=== PATIENT | female | born 1960 | race Two or more races ===

== ENCOUNTER 2020-08-29 16:21 | Emergency (ER) | payer OTHER ==
[~2020-08-29] VITALS: Ht 167.6 cm; Wt 67.6 kg
[2020-08-29] MEDS ORDERED: LORAZEPAM 1 MG TABLET PO ONE (16:30)
--- NOTE | 2020-08-29 16:33 | NUR ---
MARBIN FROM [facility] FOR GENERALIZED WEAKNESS, TO ER BED 9, HOOKED TO MONITOR, CHANGED TO HOSP GOWN, WARM BLANKET PROVIDED, PATIENT AAO x 4. DR HENDERSON AT BEDSIDE FOR EVAL.
--- NOTE | 2020-08-29 16:34 | NUR ---
NOTED W LAC 20G, PATENT AND FLUSHING.
[2020-08-29] MEDS ORDERED: LORAZEPAM 1 MG TABLET ONE (16:37)
--- NOTE | 2020-08-29 16:49 | NUR ---
PROVIDED W FOOD TRAY. TOLERATING PO WELL.
[2020-08-29 16:57] LABS: BASOPHILS # (AUTO) 0.1 /CMM (0.0-0.2); BASOPHILS % (AUTO) 0.8 % (0.0-2.0); EOSINOPHILS % (AUTO) 1.6 % (0.0-6.0); HEMATOCRIT 39 % (33-45); HEMOGLOBIN 13.3 g/dL (11.5-14.8); LYMPHOCYTES # (AUTO) 2.4 /CMM (0.8-4.8); LYMPHOCYTES % (AUTO) 32.1 % (20.0-44.0); MEAN CORPUSCULAR HGB CONC 34 g/dl (31.0-36.0); MEAN CORPUSCULAR VOLUME 88 fL (82-100); MONOCYTES # (AUTO) 0.5 /CMM (0.1-1.30); MONOCYTES % (AUTO) 6.3 % (2.0-12.0); NEUTROPHILS # (AUTO) 4.5 /CMM (1.8-8.9); NEUTROPHILS % (AUTO) 59.2 % (43.0-81.0); PLATELET COUNT (AUTO) 277 /CMM (150-450); RED BLOOD CELL COUNT(AUTO) 4.47 MIL/uL (4.0-5.2); WHITE BLOOD COUNT (AUTO) 7.5 K/uL (4.3-11.0)
[2020-08-29 17:07] LABS: CALCIUM, SERUM 8.7 mg/dL (8.5-10.1); CARBON DIOXIDE 26 mmol/L (21-32); CHLORIDE 104 mmol/L (98-107); CREATININE 0.6 mg/dL (0.6-1.3); GLUCOSE 85 mg/dL (74-106); POTASSIUM 3.5 mmol/L (3.5-5.1); SODIUM SERUM 142 mmol/L (136-145); UREA NITROGEN, BLOOD 6 mg/dL (7-18)
--- NOTE | 2020-08-29 17:10 | NUR ---
URINE SAMPLE COLLECTED AND SENT TO LAB
[2020-08-29 17:12] LABS: ALANINE AMINOTRANSFERASE 15 U/L (12-78); ALBUMIN 3.7 g/dL (3.4-5.0); ALCOHOL, BLOOD < 3 mg/dL (0-0); ALKALINE PHOSPHATASE 71 U/L (46-116); ASPARTATE AMINOTRANSFERASE 15 U/L (15-37); BILIRUBIN,DIRECT 0.1 mg/dL (0.0-0.2); BILIRUBIN,TOTAL 0.6 mg/dL (0.2-1.0); TOTAL PROTEIN, SERUM 6.8 g/dL (6.4-8.2)
[2020-08-29 17:54] LABS: BILIRUBIN,URINE SMALL (NEGATIVE); COLOR,URINE YELLOW (YELLOW); LEUKOCYTE ESTERASE ,URINE TRACE (NEGATIVE); NITRITE, URINE NEGATIVE (NEGATIVE); PROTEIN,URINE NEGATIVE (NEGATIVE); UGLUCOSE NEGATIVE (NEGATIVE); UROBILINOGEN,URINE 0.2 EU/dL (0.2)
[2020-08-29 18:07] LABS: BACTERIA,URINE None seen /HPF (None Seen); SQUAMOUS EPITHELIAL CELL,UR Few /HPF (None Seen)
--- NOTE | 2020-08-29 19:08 | NUR ---
[facility] [phone] WILL BE HERE IN AN HOUR.
--- NOTE | 2020-08-29 19:11 | NUR ---
REPORT GIVEN TO TOBIAS BARRON FOR AIDE
--- NOTE | 2020-08-29 22:28 | NUR ---
JEN AZAR AT BEDSIDE FOR EVAL.
--- NOTE | 2020-08-29 23:06 | NUR ---
IV removed. Catheter intact and site benign. Pressure and 4x4 applied to site. No bleeding noted.
--- NOTE | 2020-08-30 01:24 | NUR ---
pt asleep, vss.
--- NOTE | 2020-08-30 04:52 | NUR ---
Provided with food and water.
--- NOTE | 2020-08-30 06:03 | NUR ---
Patient discharged to home in stable condition. Written and verbal after care instructions given. Patient verbalizes understanding of instruction. Pt ambulated out of ED. VSS.
[2020-08-30 06:07] VITALS: BP 124/72
== END 2020-08-30 06:08 | disposition home or self-care (01) ==
LOC: EDSEX 16:26 → ER 16:26
DX: F22 Delusional disorders (principal); F15.10 Other stimulant abuse, uncomplicated; I10 Essential (primary) hypertension
CPT/HCPCS: 36415; 80048-TC; 80076-TC; 81001; 85025-TC; 87086-TC; G0480

== ENCOUNTER 2020-10-01 10:15 | Inpatient (IN) | payer OTHER ==
[~2020-10-01] VITALS: Ht 154.9 cm; Wt 47.6 kg
[~2020-10-01 10:15] MED LIST: DIPH25TA62 PO; DULO60CA64 PO; IBUP100O19 PO; LOSA25TA27 PO; METH20TA9 PO; ONDA4TAB5 PO; VALA500T40 PO
--- NOTE | 2020-10-01 10:20 | NUR ---
[id number] C/O BACK PAIN/SPASMS X 10 DAYS. THE PATIENT RATES BACK PAIN 10/10. DENIES SOB. RESPIRATION REGULAR AND UNLABORED. THE PATIENT IS PROVIDED WITH A WARM BLANKET. WILL CONTINUE TO MONITOR.
--- NOTE | 2020-10-01 10:23 | NUR ---
DR VELAZQUEZ AT THE BEDSIDE.
[2020-10-01] MEDS ORDERED: IPRATROPIUM NEB FS 0.5 MG/2.5 ML AMPUL.NEB ONE (10:51)
[2020-10-01] MEDS ORDERED: ALBUTEROL FS 2.5 MG/3 ML VIAL.NEB ONE (10:51)
[2020-10-01] MEDS ORDERED: IPRATROPIUM NEB FS 0.5 MG/2.5 ML AMPUL.NEB NEB ONE (11:00)
[2020-10-01] MEDS ORDERED: ALBUTEROL FS 2.5 MG/3 ML VIAL.NEB NEB ONE (11:00)
--- NOTE | 2020-10-01 12:08 | NUR ---
ER PHLEB AT BEDSIDE FOR BLOOD DRAW.
[2020-10-01] MEDS ORDERED: KETOROLAC TROMETHAMINE 15 MG/ML VIAL ONE (12:09)
[2020-10-01 12:17] LABS: BASOPHILS % (AUTO) 0.7 % (0.0-2.0); EOSINOPHILS % (AUTO) 1.3 % (0.0-6.0); HEMATOCRIT 41 % (33-45); LYMPHOCYTES # (AUTO) 1.8 /CMM (0.8-4.8); LYMPHOCYTES % (AUTO) 28.3 % (20.0-44.0); MEAN CORPUSCULAR HGB CONC 34 g/dl (31.0-36.0); MEAN CORPUSCULAR VOLUME 88 fL (82-100); MONOCYTES # (AUTO) 0.4 /CMM (0.1-1.30); MONOCYTES % (AUTO) 6.8 % (2.0-12.0); NEUTROPHILS % (AUTO) 62.9 % (43.0-81.0); PLATELET COUNT (AUTO) 276 /CMM (150-450); RED BLOOD CELL COUNT(AUTO) 4.68 MIL/uL (4.0-5.2); WHITE BLOOD COUNT (AUTO) 6.4 K/uL (4.3-11.0)
[2020-10-01 12:26] LABS: CARBON DIOXIDE 19 mmol/L (21-32); CHLORIDE 100 mmol/L (98-107); CREATININE 0.8 mg/dL (0.6-1.3); GLUCOSE 232 mg/dL (74-106); SODIUM SERUM 134 mmol/L (136-145); UREA NITROGEN, BLOOD 12 mg/dL (7-18)
--- NOTE | 2020-10-01 12:28 | NUR ---
CALLED NURSING SUP FOR GPS BED.
[2020-10-01] MEDS ORDERED: KETOROLAC TROMETHAMINE INJ 60 MG/2 ML VIAL IM ONE (12:30)
[2020-10-01 12:32] LABS: ACETAMINOPHEN 0 ug/ml (10-30); ALANINE AMINOTRANSFERASE 18 U/L (12-78); ALBUMIN 3.5 g/dL (3.4-5.0); ALCOHOL, BLOOD < 3 mg/dL (0-0); ALKALINE PHOSPHATASE 77 U/L (46-116); ASPARTATE AMINOTRANSFERASE 20 U/L (15-37); BILIRUBIN,DIRECT 0.1 mg/dL (0.0-0.2); BILIRUBIN,TOTAL 0.6 mg/dL (0.2-1.0)
--- NOTE | 2020-10-01 12:47 | NUR ---
SPORTS MANAGER PAGED FOR EVAL.
--- NOTE | 2020-10-01 12:49 | NUR ---
NURSING SUP GAVE GPS BED 219-B.
--- NOTE | 2020-10-01 12:56 | NUR ---
COVID SWAB DONE AND TAKEN IT TO THE LAB.
[2020-10-01] MEDS ORDERED: POTASSIUM CHLORIDE 20 MEQ TAB.PRT.SR PO ONE ×2 (12:59→13:00)
[2020-10-01] MEDS ORDERED: IV NS 0.9% 1,000 ML BAG IV ONE (13:00)
--- NOTE | 2020-10-01 13:55 | NUR ---
PATIENT REFUSES TO GIVEN URINE DESPITE EXPLAINING RISKS AND BENEFITS TO THE PATIENT.
--- NOTE | 2020-10-01 13:56 | NUR ---
COVID NEGATIVE PER LAB.
--- NOTE | 2020-10-01 14:24 | NUR ---
THE PATIENT IS TRANSFERED TO [facility] IN STABLE CONDITION.
[2020-10-01] MEDS ORDERED: DEXT10TA18 PO (14:53)
[2020-10-01 15:00] VITALS: BP 125/79
[2020-10-01] MEDS ORDERED: BLOOD SUGAR DIAGNOSTIC 1 EACH STRIP IN ONE (15:00)
[2020-10-01] MEDS ORDERED: MAG HYDROX/AL HYDROX/SIMETH 30 ML UDC PO PRN (15:00)
[2020-10-01] MEDS ORDERED: MAGNESIUM HYDROXIDE 30 ML UDC PO PRN (15:00)
[2020-10-01] MEDS ORDERED: LORAZEPAM 0.5 MG TABLET PO PRN (15:00)
--- NOTE | 2020-10-01 15:00 | NUR ---
RN-CO: PT WAS ESCORTED BY RN FROM ER TO COME TO THE UNIT WITH THE VOLUNTARY FROME SIGNED.HOWEVER WHEN I WAS CHECKING HER PURSE FROM [employer] SHE BECAME UNCOOPERATIVE AND ARGUMENTATIVE INSPITE OF EXPLAINING THAT IT IS THE POLICY IN THE UNIT. I DECIDED TO CALL SAMARIA BARRON (CLINICIAN) TO ASSESS THE PT FOR 5150 HOLD.
[2020-10-01] MEDS: NICOTINE PATCH (14MG) 14 MG PATCH.TD24 TD SCH (15:35)
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
[2020-10-01 16:00] VITALS: BP 125/79
[2020-10-01] MEDS: ACETAMINOPHEN 325 MG TABLET PO PRN (16:51)
--- NOTE | 2020-10-01 16:53 | NUR ---
RN-CO: TYLENOL GIVEN 650 MG PO FOR 4/10 NECK PAIN.
[2020-10-01] MEDS: OLANZAPINE ZYDIS 5 MG TAB.RAPDIS PO SCH ×2 (17:30→18:15)
--- NOTE | 2020-10-01 17:47 | NUR ---
Soledad the clinician came and evaluated the pt. and pt. placed on 5150 for GD. Pt. have a labile mood, argumentative, paranoid , yelling the staff and stating that you will leave the unit if you want to leave and do not have a safe plan of care.
[2020-10-01] MEDS: DULOXETINE HCL 30 MG CAPSULE.DR PO SCH (18:15)
[2020-10-01 19:48] VITALS: BP 119/74
[2020-10-01 19:52] VITALS: BP 119/74
[2020-10-01] MEDS: TEMAZEPAM 7.5 MG CAPSULE PO PRN (21:21)
[2020-10-02 06:12] LABS: ALBUMIN 3.4 g/dL (3.4-5.0); BILIRUBIN,TOTAL 0.6 mg/dL (0.2-1.0); CALCIUM, SERUM 8.7 mg/dL (8.5-10.1); CREATININE 0.5 mg/dL (0.6-1.3); TOTAL PROTEIN, SERUM 6.5 g/dL (6.4-8.2)
[2020-10-02 06:41] LABS: CHOLESTEROL 166 mg/dL (<200); HDL CHOLESTEROL 56 mg/dL (40-60); LDL 97 mg/dL (0-99); TRIGLYCERIDES 63 mg/dL (30-150)
[2020-10-02 08:00] VITALS: BP 126/76
[2020-10-02] MEDS: NICOTINE PATCH (14MG) 14 MG PATCH.TD24 TD SCH (08:22)
[2020-10-02] MEDS: DULOXETINE HCL 30 MG CAPSULE.DR PO SCH (08:22)
[2020-10-02] MEDS: OLANZAPINE ZYDIS 5 MG TAB.RAPDIS PO SCH ×2 (08:23→17:26)
[2020-10-02] MEDS: LOSARTAN POTASSIUM 25 MG TABLET PO SCH (08:27)
--- NOTE | 2020-10-02 08:30 | NUR ---
GPS/RN-NOTES PATIENT REFUSED COZAAR 25MG P.O, STATED " I NEVER HAD HYPERTENSION, I DON'T NEED ANY BP MEDS. EXPLAINED RISK AND BENEFITS BUT STILL REFUSED. OFFERED X3.
[2020-10-02] MEDS ORDERED: VALACYCLOVIR HCL 500 MG TABLET PO SCH (09:00)
--- NOTE | 2020-10-02 14:59 | NUR ---
GPS/RN-NOTES PATIENT REQUESTING IF HER NICOTINE WILL INCREASE TO 21MG. WIRE CHARGER EDUARDO HANNA WAS MADE AWARE AND AGREED TO INCREASE NICOTINE TO 21MG DAILY ALSO ORDERED COLACE 100MG P.O DAILY. NOTED AND CARRIED OUT.
[2020-10-02] MEDS: ACETAMINOPHEN 325 MG TABLET PO PRN (15:34)
--- NOTE | 2020-10-02 15:36 | NUR ---
GPS/RN-NOTES PATIENT REQUESTING TYLENOL, TYLENOL 650MG P.O GIVEN PRN ORDER. WILL CONT. MONITORING.
[2020-10-02 16:00] VITALS: BP 101/59
--- NOTE | 2020-10-02 16:05 | NUR ---
Initial Discharge Plan: Pt is currently homeless and states that she wants to be placed somewhere where she can live alone. SW will work with the pt and the MD regarding appropriate discharge planning. SW will form a safe and proper discharge.
--- NOTE | 2020-10-02 17:59 | NUR ---
GPS/RN-NOTES PATIENT SCREAMING AND YELLING , AGITATED AND VERBALLY ABUSIVE THREATENING TO LEAVE THE UNIT WHILE TALKING TO DR. CATHERINE VIA TELEMEDICINE. DR. CATHERINE GAVE T.O ORDER OF ATIVAN 2MG IM X1 ,HALDOL 10MG IM X1 ,AND BENADRYL 50MG IM X1. NOTED AND CARRIED OUT. NEEDS 2 STAFF AND SECURITY STAND BY WHEN THE FARM TRACTOR OPERATOR ADMINISTERED THE IM MEDICATIONS. ADMINISTERED AT THE RIGHT BUTTOCK .PATIENT CONTINUE SCREAMING AND YELLING AT STAFF AND THREATENING TO [facility] THE [facility] AND THE STAFF AND PUSHING THE TABLE IN HER ROOM. PATIENT WAS REDIRECTED AND BROUGHT TO THE OBSERVATION ROOM TO CONTINUE MONITORING FOR SAFETY AND BEHAVIOR.
[2020-10-02] MEDS ORDERED: HALOPERIDOL LACTATE INJ 5 MG/ML VIAL IM ONE (18:00)
[2020-10-02] MEDS ORDERED: LORAZEPAM INJ 2 MG/ML VIAL IM ONE (18:00)
[2020-10-02] MEDS ORDERED: diphenhydrAMINE HCL 50 MG/ML VIAL IM ONE (18:00)
--- NOTE | 2020-10-02 19:40 | NUR ---
GPS/RN-NOTES PATIENT SLEEPING IN BED WITH BREATHING EVEN AND NONLABORED EASILY AROUSE,NO ACUTE DISTRESS NOTED. ENDORSED TO NIGHT NURSE FOR CONTINUITY OF CARE.
[2020-10-02 19:50] VITALS: BP 132/61
[2020-10-02 20:10] VITALS: BP 132/61
--- NOTE | 2020-10-03 01:15 | NUR ---
RN NOTE PATIENT HAS BEEN SLEEPING COMFORTABLY.
[2020-10-03 08:00] VITALS: BP 127/84
[2020-10-03] MEDS: OLANZAPINE ZYDIS 5 MG TAB.RAPDIS PO SCH ×2 (09:00→17:00)
[2020-10-03] MEDS: LOSARTAN POTASSIUM 25 MG TABLET PO SCH (09:00)
[2020-10-03] MEDS: DULOXETINE HCL 30 MG CAPSULE.DR PO SCH (09:56)
[2020-10-03] MEDS: DOCUSATE SODIUM 100 MG CAPSULE PO SCH (09:56)
[2020-10-03] MEDS: NICOTINE PATCH (21MG) 21 MG PATCH.TD24 TD SCH (09:57)
--- NOTE | 2020-10-03 10:35 | NUR ---
GPS/RN-NOTES PATIENT REFUSED ZYPREXA 10MG P.O AND COZAAR 25MG P.O. STATED" I'M NOT TAKING THOSE ZYPREXA BECAUSE IN DON'T LIKE IT AND NOT THE BP MEDICATION, I DON'T HAVE HTN". OFFERED X3
[2020-10-03] MEDS ORDERED: LORAZEPAM INJ 2 MG/ML VIAL IM STA (13:40)
[2020-10-03] MEDS ORDERED: HALOPERIDOL LACTATE INJ 5 MG/ML VIAL IM STA (13:40)
[2020-10-03] MEDS ORDERED: diphenhydrAMINE HCL 50 MG/ML VIAL IM STA (13:40)
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
[2020-10-03 16:00] VITALS: BP 140/93
--- NOTE | 2020-10-03 18:58 | NUR ---
GPS/RN-NOTES PATIENT SLEEPING IN BED WITH BREATHING EVEN AND NONLABORED EASILY AROUSE, NO ACUTE DISTRESS NOTED. WILL ENDORSE TO INCOMING NURSE TO CONTINUE MONITORING AND CARE.
[2020-10-03 19:50] VITALS: BP 136/89
[2020-10-03 20:09] VITALS: BP 136/89
[2020-10-04 08:00] VITALS: BP 140/86
[2020-10-04] MEDS: NICOTINE PATCH (21MG) 21 MG PATCH.TD24 TD SCH (08:06)
[2020-10-04] MEDS: DOCUSATE SODIUM 100 MG CAPSULE PO SCH (08:06)
[2020-10-04] MEDS: DULOXETINE HCL 30 MG CAPSULE.DR PO SCH (08:06)
[2020-10-04] MEDS: LOSARTAN POTASSIUM 25 MG TABLET PO SCH (08:07)
[2020-10-04] MEDS: OLANZAPINE ZYDIS 5 MG TAB.RAPDIS PO SCH ×2 (08:11→17:00)
[2020-10-04 16:00] VITALS: BP 131/71
[2020-10-04 20:32] VITALS: BP 114/63
[2020-10-05 08:00] VITALS: BP 149/93
[2020-10-05] MEDS: NICOTINE PATCH (21MG) 21 MG PATCH.TD24 TD SCH (08:28)
[2020-10-05] MEDS: DULOXETINE HCL 30 MG CAPSULE.DR PO SCH (08:28)
[2020-10-05] MEDS: LOSARTAN POTASSIUM 25 MG TABLET PO SCH (08:28)
[2020-10-05] MEDS: DOCUSATE SODIUM 100 MG CAPSULE PO SCH (08:28)
[2020-10-05] MEDS: OLANZAPINE ZYDIS 5 MG TAB.RAPDIS PO SCH ×2 (08:33→16:10)
--- NOTE | 2020-10-05 08:33 | NUR ---
RN NOTE: MEDICATION REFUSAL. PT REFUSED AM ZYPREXA. "IT MAKES ME TIRED AND I DON'T NEED IT". ATTEMPTED TO EDUCATE PT RE IMPORTANCE OF MEDICATION COMPLIANCE. PT CONT'D TO REFUSE X 3. WILL CONT TO MONITOR FOR BEHAVIOR AND SAFETY. WRIT TO BE SCHEDULED AND FILED.
[2020-10-05] MEDS: LORAZEPAM 1 MG TABLET PO PRN ×2 (12:54→18:01)
--- NOTE | 2020-10-05 12:54 | NUR ---
RN NOTE: ANXIETY PT EXHIBITING INCREASED ANXIETY. YELLING AND SCREAMING. ATIVAN 1MG PO PRN ADMINISTERED.
--- NOTE | 2020-10-05 13:02 | NUR ---
Individual Intervention: MICHELLE informed the pt that she spoke with the pts MD and he stated that the pt can be discharged on Monday. SW inquired where she wanted to go as she has been adamant about being discharged today. Pt stated that she will return to her car and figure out her own plan. SW stated that she has every right to do that and will be discharged on Monday.
[2020-10-05 16:45] VITALS: BP 127/92
--- NOTE | 2020-10-05 18:01 | NUR ---
RN NOTE: ANXIETY PT EXHIBITING INCREASED ANXIETY. PT REQUESTING ATIVAN. ATIVAN 1MG PO PRN.
[2020-10-05 20:00] VITALS: BP 121/73
[2020-10-06] MEDS: LORAZEPAM 1 MG TABLET PO PRN ×3 (06:16→17:03)
[2020-10-06 08:00] VITALS: BP 121/87
[2020-10-06] MEDS: DULOXETINE HCL 30 MG CAPSULE.DR PO SCH (08:00)
[2020-10-06] MEDS: DOCUSATE SODIUM 100 MG CAPSULE PO SCH (08:01)
[2020-10-06] MEDS: NICOTINE PATCH (21MG) 21 MG PATCH.TD24 TD SCH (08:01)
[2020-10-06] MEDS: LOSARTAN POTASSIUM 25 MG TABLET PO SCH (08:01)
[2020-10-06] MEDS: OLANZAPINE ZYDIS 5 MG TAB.RAPDIS PO SCH ×2 (08:07→17:00)
--- NOTE | 2020-10-06 08:07 | NUR ---
RN NOTE: MEDICATION REFUSAL PT REFUSED AM ZYPREXA. EDUCATED PT RE IMPORTANCE OF MEDICATION COMPLIANCE. PT CONT'D TO REFUSE X 3
--- NOTE | 2020-10-06 10:24 | NUR ---
RN NOTE: ANXIETY PT EXHIBITING INCREASED ANXIETY AND AGITATION. ATIVAN 1MG PO PRN ADMINISTERED.
[2020-10-06] MEDS: HYDROCODONE/APAP 5/325MG TABLET PO PRN ×2 (10:29→19:31)
--- NOTE | 2020-10-06 10:29 | NUR ---
RN NOTE: PAIN PT C/O 02/09 NECK PAIN. NORCO PRN ADMINISTERED
--- NOTE | 2020-10-06 12:08 | NUR ---
UR Note: MICHELLE called Salima ([phone]), [employer] improvement coordinator, and left a voicemail stating that the SW is requested aftercare appointments for this pt.
--- NOTE | 2020-10-06 12:09 | NUR ---
UR Note: [employer] case reviewer, Leslie Contreras ([phone]), contacted the SW and stated that today is the pts last covered day. SW stated that the pt will be discharged tomorrow and that the SW will provide a discharge clinical tomorrow.
--- NOTE | 2020-10-06 12:10 | NUR ---
Individual Intervention: Pt came to the SW door and aggressively asked why she cannot be placed somewhere that a program will pay for and SW stated that the hospital attempted that last time but the pt was not cooperative and she has not been cooperative with her treatment here in the hospital. SW also stated that the pt had stated that she wanted to return to her car.
[2020-10-06 16:00] VITALS: BP 138/97
--- NOTE | 2020-10-06 17:03 | NUR ---
RN NOTE: MEDICATION REFUSAL AND ANXIETY PT REFUSED 1700 DOSE OF ZYPREXA. EDUCATED PT RE IMPORTANCE OF MEDICATION COMPLIANCE. PT CONT'D TO REFUSE X 3. PT EXHIBITING INCREASED ANXIETY AND REQUESTING ATIVAN PRN. ATIVAN 1MG PO PRN ADMINISTERED.
--- NOTE | 2020-10-06 19:31 | NUR ---
GPS-RN NOTES: BACK PAIN PATIENT C/O MID BACK PAIN ON A PAIN SCALE OF 7/10. ADMINISTERED NORCO 5/325MG PO ORDERED. WILL CONTINUE TO REASSESS.
[2020-10-06 20:00] VITALS: BP 146/76
[2020-10-06] MEDS: TEMAZEPAM 7.5 MG CAPSULE PO PRN (21:21)
--- NOTE | 2020-10-06 21:21 | NUR ---
GPS-RN NOTES: INSOMNIA PATIENT C/O INABILITY TO SLEEP. ADMINISTERED RESTORIL 7.5MG PO ORDERED. WILL CONTINUE TO MONITOR.
[2020-10-07] MEDS: LORAZEPAM 1 MG TABLET PO PRN (05:44)
--- NOTE | 2020-10-07 05:44 | NUR ---
GPS-RN NOTES: ANXIETY PATIENT C/O FEELING ANXIOUS. ADMINISTERED ATIVAN 1MG PO ORDERED PER PATIENT'S REQUEST. WILL CONTINUE TO MONITOR FOR PATIENT'S SAFETY.
[2020-10-07] MEDS: HYDROCODONE/APAP 5/325MG TABLET PO PRN ×2 (06:28→10:49)
--- NOTE | 2020-10-07 06:28 | NUR ---
GPS-RN NOTES: NECK PAIN PATIENT C/O NECK PAIN ON A PAIN SCALE OF 7/10. ADMINISTERED NORCO 5/325MG PO ORDERED. WILL CONTINUE TO REASSESS.
[2020-10-07 08:00] VITALS: BP 128/88
[2020-10-07 08:19] VITALS: BP 128/88
[2020-10-07] MEDS: OLANZAPINE ZYDIS 5 MG TAB.RAPDIS PO SCH (08:19)
[2020-10-07] MEDS: DOCUSATE SODIUM 100 MG CAPSULE PO SCH (08:19)
[2020-10-07] MEDS: DULOXETINE HCL 30 MG CAPSULE.DR PO SCH (08:19)
[2020-10-07] MEDS: LOSARTAN POTASSIUM 25 MG TABLET PO SCH (08:19)
[2020-10-07] MEDS: NICOTINE PATCH (21MG) 21 MG PATCH.TD24 TD SCH (08:19)
--- NOTE | 2020-10-07 08:20 | NUR ---
RN NOTE: MEDICATION REFUSAL PT REFUSED ZYPREXA SCHEDULED FOR 0900. EDUCATED PT RE IMPORTANCE OF MEDICATION COMPLIANCE. PT CONT'D TO REFUSE X 3 WILL CONT TO MONITOR FOR SAFETY AND BEHAVIOR PER PROTOCOL
--- NOTE | 2020-10-07 10:35 | NUR ---
Individual Intervention: Pt came to the social work office door and stated that she wanted to be placed in the same assistance program as last time and general distillery worker stated that the hospital had assisted and that the pt refused to continue to pay. SW attempted to offer the pt homeless resources as well as doctor referrals but the pt would not listen and refused to accept them and started making statements like "You are not helping me you cannot even give me a bus token. I cannot walk." Pt would not allow the SW to finish her statements and would constantly interrupt. SW attempted to explain to the pt how she was admitted to the hospital to the psych unit when crisis evaluated her and pt became verbally aggressive. SW stated that she was not going to be able to speak to her in this condition and shut the office door.
--- NOTE | 2020-10-07 10:50 | NUR ---
Discharge Note: Pt will be discharged to her own plan of care around 11AM. Pt states that she is going to go back to living in her car and using her social security checks to get food and take care of herself. Pt refused to allow the SW to secure board and care placement because she stated that she wanted to live on her own. Pt stated that she will eventually find her own apartment. Upon discharge, pt presents with irritated affect and is mood congruent. Pt appears to be alert and oriented x4 (time, place, self and situation). Pt denies suicidal and homicidal ideation as well as auditory and visual hallucinations. SW attempted to provide patient with the 2019 [facility] Program list but pt refused as well as doctor referrals that are authorized through her insurance company. Pt stated, I do not need this. I need a place to stay. You are not helping me. You will not even give me a bus token. MICHELLE placed the resources in the pts chart which include [facility] homeless directory which provides information on locations for hot meals, sack lunches, food pantries, and showers. MICHELLE provided an additional list of mental health clinics: [facility] [address] [place] [address] ([phone]); [facility] [address] [place] [address] ([phone]); a list of medical clinics; [facility] [address], [place]. [place], ; [facility] [address], [address]. MICHELLE Provided [facility] [address] [place] [address]: ([phone]). Patient was provided with a brief substance abuse intervention and referred to the following substance abuse programs: [facility] ([phone]); [facility] [address] [place] [address] ([phone]); [facility] [address] [facility] [address] ([phone]); [facility] ([phone]); [facility] ([phone]); [facility] ([phone]); [facility] ([phone]). Pt was referred to [facility] for psychiatric services located at [address] [place] [address]; ; and a fax of records was sent to: . Pt was also referred to [facility] located at [address] [place] [address]; for medical assistance. Pt refused to sign the homeless waiver and the MICHELLE completed the multidisciplinary exit care form. Addendum: 10/07/20 at 1203 by MICHELLE JUAREZ MICHELLE also placed a copy of smoking cessation referrals in the pts chart along with the other resources.
--- NOTE | 2020-10-07 10:51 | NUR ---
RN NOTE: PAIN PT C/O 02/09 NECK AND BACK PAIN. REQUESTING NORCO PO PRN. NORCO PO PRN ADMINISTERED.
--- NOTE | 2020-10-07 11:00 | NUR ---
RN NOTE: DISCHARGE NOTE 60 YEAR OLD FEMALE DISCHARGED TO HER OWN PLAN OF CARE IN STABLE CONDITION. COMPLIANT WITH SPECIFIC MEDICATIONS, COOPERATIVE WITH TREATMENT PLANS. PATIENT DENIES SI/HI AND INSTRUCTED TO GO TO THE CLOSEST ER IF DEVELOPING SI/HI. BEHAVIOR IMPROVED, PSYCHIATRIC TREATMENT PLANS DEFERRED FOR CONTINUAL MONITORING. EDUCATED PT ABOUT AFTER CARE PLAN/EXIT CARE AND COPY PROVIDED. RETURNED PERSONAL BELONGINGS TO PATIENT. MEDICATIONS RECONCILED WITH DR. CATHERINE AND LIZZ DAVENPORT . PT SIGNED DISCHARGE PAPERWORK. PT REFUSED SKIN ASSESSMENT ON ADMIT AND DISCHARGE. PATIENT LEFT THE UNIT AT 11:OO. PATIENT ID BAND REMOVED.
--- NOTE | 2020-10-07 11:54 | NUR ---
UR Note: MICHELLE called Jaime ([phone]), [employer] regional facilities manager, and conducted the discharge clinical live for Auth# [id number].
== END 2020-10-07 11:00 | disposition home or self-care (01) | DRG 885 ==
LOC: ER 10:27 → GPS 14:02
PROVIDERS: ADMIT Psychiatry & Neurology Psychiatry; ATTEND Nurse Practitioner Acute Care
DX: F31.89 Other bipolar disorder (principal); E87.1 Hypo-osmolality and hyponatremia; E87.6 Hypokalemia; I10 Essential (primary) hypertension; F17.200 Nicotine dependence, unspecified, uncomplicated; F41.9 Anxiety disorder, unspecified; G47.00 Insomnia, unspecified; I25.10 Atherosclerotic heart disease of native coronary artery without angina pectoris; F29 Unspecified psychosis not due to a substance or known physiological condition; F39 Unspecified mood [affective] disorder; R73.9 Hyperglycemia, unspecified; Z20.822 Contact with and (suspected) exposure to COVID-19; Z59.0 Homelessness
CPT/HCPCS: 36415; 80048-TC; 80053-TC; 80061-TC; 80076-TC; 82962-TC; 85025-TC; 87081-TC; C9803; G0480; J1200; J1630; J1885; J2060

== ENCOUNTER 2020-10-16 09:36 | Emergency (ER) | payer OTHER ==
[~2020-10-16] VITALS: Ht 162.6 cm; Wt 70.8 kg
[~2020-10-16 09:36] MED LIST changes: +DEXT10TA18 PO; -DIPH25TA62 PO; -METH20TA9 PO; -ONDA4TAB5 PO; -VALA500T40 PO
[2020-10-16 09:38] VITALS: BP 154/82
[2020-10-16] MEDS ORDERED: HYDROCODONE/APAP 5/325MG TABLET ONE (09:58)
[2020-10-16] MEDS ORDERED: IBUPROFEN 600 MG TABLET ONE (09:59)
[2020-10-16] MEDS ORDERED: HYDROCODONE/APAP 5/325MG TABLET PO ONE (10:00)
[2020-10-16] MEDS ORDERED: IBUPROFEN 600 MG TABLET PO ONE (10:00)
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
[2020-10-16] MEDS ORDERED: MORPHINE SULFATE INJ 4 MG/ML DISP.SYRIN ONE (11:11)
[2020-10-16] MEDS ORDERED: MORPHINE SULFATE INJ 2 MG/ML DISP.SYRIN IM ONE (11:30)
[2020-10-16] MEDS ORDERED: HYDR-3976 GT (11:37)
--- NOTE | 2020-10-16 12:05 | NUR ---
Pt refused the have her vital signes taken because Pt states, "I hate the universe!!!! (yelling). Leave me alone!!!! (yelling)....".
--- NOTE | 2020-10-16 12:07 | NUR ---
Patient discharged to home in stable condition. Written and verbal after care instructions given. Patient verbalizes understanding of instruction. Pt ambulatory with a steady gait. Homeless waiver signed by the pt. Meal provided
== END 2020-10-16 12:11 | disposition home or self-care (01) ==
LOC: ER 09:37
DX: S52.021A Displaced fracture of olecranon process without intraarticular extension of right ulna, initial encounter for closed fracture (principal); I10 Essential (primary) hypertension; Z59.0 Homelessness; Z79.899 Other long term (current) drug therapy; Y04.8XXA Assault by other bodily force, initial encounter; Y93.89 Activity, other specified; Y92.89 Other specified places as the place of occurrence of the external cause; Y99.8 Other external cause status
CPT/HCPCS: 29105; 73070; 73502; 96372; 99284; J2270

== ENCOUNTER 2020-10-24 16:25 | Emergency (ER) | payer OTHER ==
[~2020-10-24] VITALS: Ht 162.6 cm; Wt 70.8 kg
[~2020-10-24 16:25] MED LIST changes: +HYDR-3976 GT
[2020-10-24 16:27] VITALS: BP 115/75
--- NOTE | 2020-10-24 17:13 | NUR ---
Patient discharged to home in stable condition. Written and verbal after care instructions given. Patient verbalizes understanding of instruction. Pt ambulatory with a steady gait. Pt refused to sign [employer] and Homeless waiver.
== END 2020-10-24 17:10 | disposition home or self-care (01) ==
LOC: ER 16:30
DX: S52.021D Displaced fracture of olecranon process without intraarticular extension of right ulna, subsequent encounter for closed fracture with routine healing (principal); I10 Essential (primary) hypertension; Z59.0 Homelessness; Z79.899 Other long term (current) drug therapy; Y08.89XD Assault by other specified means, subsequent encounter